=== PATIENT | male | born 1970 | race Caucasian/White ===

== ENCOUNTER 2016-12-31 16:46 | Emergency (ER) | payer OTHER ==
[2016-12-31 16:59] VITALS: BP 132/81
--- NOTE | 2016-12-31 17:43 | ER Document Report ---
ED Hand/Wrist Injury - General Chief Complaint: Finger Injury Stated Complaint: WC/FINGER LACERATION Time seen by provider: 17:32 Mode of Arrival: Ambulatory Information source: Patient Notes: 46-year-old male presents to ED for avulsion injury to second left finger. He states he was cutting a bag at work and sliced his finger. States his tetanus was 2 or 3 years ago. Bleeding is under control. TRAVEL OUTSIDE OF THE [place] IN LAST 30 DAYS: No - HPI Injury to: Index finger Onset: Just prior to arrival - Left Where: Indoors, Work Timing: Still present Quality of pain: Sharp Severity: Mild Pain Level: 1 Context: Other - Skin avulsion - Related Data Allergies/Adverse Reactions: No Known Allergies Allergy (Unverified 12/31/16 16:58) Past Medical History - General Information source: Patient - Social History Smoking Status: Current Every Day Smoker Cigarette use (# per day): Yes Chew tobacco use (# tins/day): No Smoking Education Provided: Yes - less than 2 minutes Frequency of alcohol use: None Drug Abuse: None Occupation: [employer] Lives with: Family Family History: CAD, Hyperlipidemia, Hypertension Patient has suicidal ideation: No Patient has homicidal ideation: No - Past Medical History Cardiac Medical History: Reports: None Pulmonary Medical History: Reports: None EENT Medical History: Reports: None Neurological Medical History: Reports: None Endocrine Medical History: Reports: None Renal/ Medical History: Reports: None Malignancy Medical History: Reports None GI Medical History: Reports: None Musculoskeltal Medical History: Reports Hx Musculoskeletal Trauma Skin Medical History: Reports None Psychiatric Medical History: Reports: None Traumatic Medical History: Reports: Hx Fractures - Foot and wrist Infectious Medical History: Reports: None Past Surgical History: Reports: Hx Oral Surgery - [place] teeth, Hx Tonsillectomy - Immunizations Immunizations up to date: Yes Hx Diphtheria, Pertussis, Tetanus Vaccination: Yes - 3 years ago Review of Systems - Review of Systems Constitutional: No symptoms reported EENT: No symptoms reported Cardiovascular: No symptoms reported Respiratory: No symptoms reported Gastrointestinal: No symptoms reported Genitourinary: No symptoms reported Male Genitourinary: No symptoms reported Musculoskeletal: No symptoms reported Skin: Other - Avulsion injury to left index finger small area to the lateral aspect of the finger Hematologic/Lymphatic: No symptoms reported Neurological/Psychological: No symptoms reported -: Yes All other systems reviewed and negative Physical Exam - Vital signs Vitals: Temp Pulse Resp BP Pulse Ox 98.4 F 91 16 132/81 H 97 12/31/16 16:54 12/31/16 16:54 12/31/16 16:54 12/31/16 16:54 12/31/16 16:54 Interpretation: Normal - General General appearance: Appears well, Alert - HEENT Head: Normocephalic, Atraumatic Eyes: Normal Pupils: PERRL - Respiratory Respiratory status: No respiratory distress Chest status: Nontender Breath sounds: Normal Chest palpation: Normal - Cardiovascular Rhythm: Regular Heart sounds: Normal auscultation Murmur: No - Abdominal Inspection: Normal Distension: No distension Bowel sounds: Normal Tenderness: Nontender Organomegaly: No organomegaly - Back Back: Normal, Nontender - Extremities General upper extremity: Normal inspection, Nontender, Normal color, Normal ROM , Normal temperature General lower extremity: Normal inspection, Nontender, Normal color, Normal ROM , Normal temperature, Normal weight bearing. No: Mc's sign - Neurological Neuro grossly intact: Yes Cognition: Normal Orientation: AAOx4 Kyle Coma Scale Eye Opening: Spontaneous Clayton Coma Scale Verbal: Oriented Kyle Coma Scale Motor: Obeys Commands Kyle Coma Scale Total: 15 Speech: Normal Motor strength normal: LUE, RUE, LLE, RLE Sensory: Normal - Psychological Associated symptoms: Normal affect, Normal mood - Skin Skin Temperature: Warm Skin Moisture: Dry Skin Color: Normal Location of irregularity: Extremities - Left index finger avulsion injury. He states he was cutting a bag at work when he sliced his finger. Irregularity with: Tenderness Course - Re-evaluation Re-evalutation: 12/31/16 17:48 Injury was cleaned well with soap and water, then bacitracin and Telfa pad applied. Finger wrapped with Kerlix and then called and the patient instructed to remove the Coban and in about an hour and just take the Curlex. Patient to leave dressing intact until morning and then applied bacitracin and a Band-Aid. - Vital Signs Vital signs: Temp Pulse Resp BP Pulse Ox 98.4 F 91 16 132/81 H 97 12/31/16 16:54 12/31/16 16:54 12/31/16 16:54 12/31/16 16:54 12/31/16 16:54 Discharge - Discharge Clinical Impression: Avulsion of skin of finger Qualifiers: Encounter type: initial encounter Qualified Code(s): S61.209A - Unspecified open wound of unspecified finger without damage to nail, initial encounter Condition: Stable Disposition: HOME, SELF-CARE Instructions: Family Physicians / Practices Additional Instructions: Avulsion Injury You have an avulsion injury -- a loss of skin which can't be helped by suturing. When large, these injuries can require skin grafting. Smaller defects or shallow avulsions usually heal well with dressings. Keep the dressing clean and dry. If the bandage becomes wet, remove it, blot the area dry, and apply a fresh dressing. Change the dressings every day. Complete healing may take anywhere from 10 days to two months. The healing time depends on the size and depth of the avulsion and on the amount of crushing of underlying tissues. Re-examination by the physician is often necessary. If any signs of infection occur (swelling, redness, increasing tenderness, red streaks, profuse purulent drainage from the avulsion, tender lumps in the armpit or groin above the avulsion, or fever), see your doctor immediately. SOAP CLEANSING: Gently wash the wound daily using a mild soap (like Ivory, Phisoderm, Neutrogena). Use warm water, rubbing gently until all debris, ooze, and crusting have been washed from the wound. Allow to dry briefly (about 10 minutes) after cleaning. Repeat this cleansing at least three times a day for the first two days and then once or twice a day. ANTIBIOTIC OINTMENT PROTECTION: Your wounds are such that dressing them is not practical or optional. After cleansing, you should apply a thin coating of antibiotic ointment ( Bacitracin, not Neosporin) to the wounds at least three times daily. This lessens infection risk, and may decrease the amount of scarring. Use a q-tip or dull butter knife, not your finger, to apply this ointment. Any debris or ooze which builds up in the ointment should be gently rubbed off with a sterile gauze pad. Harder crusting may need to be gently scrubbed off with a clean wash cloth with soap and warm water, perhaps applying a warm, wet wash cloth to the wound for ten minutes first. Development of redness, severe itching, or blistering may mean allergy to the ointment. See the doctor. Keep finger covered with dressing until it starts to heal at least 24-48 hours after that please keep covered while at work when working with food. FOLLOW-UP CARE: If you have been referred to a physician for follow-up care, call the physician s office for an appointment as you were instructed or within the next two days. If you experience worsening or a significant change in your symptoms, notify the physician immediately or return to the Emergency Department at any time for re-evaluation. Forms: Smoking Cessation Education, Elevated Blood Pressure, Return to Work
== END 2016-12-31 17:40 | disposition home or self-care (01) ==
LOC: ER 16:46
DX: S61.211A Laceration without foreign body of left index finger without damage to nail, initial encounter (principal); W45.8XXA Other foreign body or object entering through skin, initial encounter; Y93.89 Activity, other specified; Y99.0 Civilian activity done for income or pay; F17.210 Nicotine dependence, cigarettes, uncomplicated; Z71.6 Tobacco abuse counseling
CPT/HCPCS: 99283